=== PATIENT | female | born 1950 | race Caucasian/White ===

== ENCOUNTER 2019-02-21 08:32 | Day surgery (SDC) | payer MEDICARE, BC ==
[~2019-02-21] VITALS: Ht 175.3 cm; Wt 68.6 kg
[~2019-02-21 08:32] MED LIST: ACET500; Allergy25 M1; CALCIUM 600 +1 EA11 PO; Daily Multiple1 EACH PO
== END 2019-02-21 10:45 | disposition home or self-care (01) ==
LOC: ORSCSDS 08:32
PROVIDERS: Internal Medicine Gastroenterology
PROC: 0DBK8ZX Excision of Ascending Colon, Via Natural or Artificial Opening Endoscopic, Diagnostic (ICD-10-PCS; principal; 2019-02-21 10:00)
PROC: 0DBM8ZX Excision of Descending Colon, Via Natural or Artificial Opening Endoscopic, Diagnostic (ICD-10-PCS; principal; 2019-02-21 10:00)
DX: Z12.11 Encounter for screening for malignant neoplasm of colon (principal); Z86.010 Personal history of colon polyps; K57.30 Diverticulosis of large intestine without perforation or abscess without bleeding; D12.2 Benign neoplasm of ascending colon; D12.4 Benign neoplasm of descending colon
CPT/HCPCS: 88305; J2704; J7120

== ENCOUNTER 2020-05-29 10:54 | Day surgery (SDC) | payer MEDICARE, BC ==
[~2020-05-29] VITALS: Ht 175.3 cm; Wt 69.9 kg
--- NOTE | 2020-05-29 11:49 | NUR ---
05/29/20 1149 Bettina Luciano TIMEOUT AND SITE CHECK FOR ISB DONE WITH DR PATEL.
--- NOTE | 2020-05-29 14:58 | NUR ---
05/29/20 1458 [place] DISCHARGE INSTRUCTIONS GIVEN REGARDING MEDICATION, SHOULDER IMMOBILIZER, POLAR PACK, INCENTIVE SPIROMETER, SHOULDER EXERCISES, ACTIVITY AND DIET. SHE AND FRIEND MIKEY [place]. ASSISTED TO DRESS AND DISCHARGED HOME WITH ALL BELONGINGS, RX, AND ABOVE MENTIONED EQUIPMENT.
== END 2020-05-29 14:50 | disposition home or self-care (01) ==
LOC: ORSCSDS 10:54
PROVIDERS: Orthopaedic Surgery
PROC: 0RHJ44Z Insertion of Internal Fixation Device into Right Shoulder Joint, Percutaneous Endoscopic Approach (ICD-10-PCS; principal; 2020-05-29 12:30)
PROC: 0LQ14ZZ Repair Right Shoulder Tendon, Percutaneous Endoscopic Approach (ICD-10-PCS; principal; 2020-05-29 12:30)
PROC: 0RNJ4ZZ Release Right Shoulder Joint, Percutaneous Endoscopic Approach (ICD-10-PCS; principal; 2020-05-29 12:30)
PROC: 0LS34ZZ Reposition Right Upper Arm Tendon, Percutaneous Endoscopic Approach (ICD-10-PCS; principal; 2020-05-29 12:30)
DX: S46.001A Unspecified injury of muscle(s) and tendon(s) of the rotator cuff of right shoulder, initial encounter (principal); M75.21 Bicipital tendinitis, right shoulder; M75.41 Impingement syndrome of right shoulder; K21.9 Gastro-esophageal reflux disease without esophagitis
CPT/HCPCS: C1713; J0171; J0690; J1100; J2250; J2370; J2405; J2704; J2710; J3010; J7120

== ENCOUNTER → 2020-06-24 | Outpatient (CLI) | payer MEDICARE, BC | END | disposition home or self-care (01) | LOC: LAB SHORT 14:46 → LAB 14:46 | DX: L08.0 Pyoderma (principal) | CPT/HCPCS: 87070; 87205 ==

== ENCOUNTER → 2021-02-18 | Outpatient (CLI) | payer MEDICARE, BC | LOC: LAB SHORT 15:08 → LAB 15:08 | DX: D48.5 Neoplasm of uncertain behavior of skin (principal); C44.609 Unspecified malignant neoplasm of skin of left upper limb, including shoulder; Z88.1 Allergy status to other antibiotic agents | CPT/HCPCS: 88305 ==

== ENCOUNTER → 2021-05-06 | Outpatient (CLI) | payer MEDICARE, BC | LOC: LAB SHORT 07:50 → LAB 07:50 | DX: D48.5 Neoplasm of uncertain behavior of skin (principal); L82.0 Inflamed seborrheic keratosis; Z88.1 Allergy status to other antibiotic agents | CPT/HCPCS: 88305 ==

== ENCOUNTER → 2022-06-14 | Outpatient (CLI) | payer MEDICARE, BC | LOC: LAB SHORT 15:07 | DX: L82.1 Other seborrheic keratosis (principal) | CPT/HCPCS: 88305 ==